=== PATIENT | male | born 1960 | race Two or more races ===

== ENCOUNTER 2018-02-17 07:20 | Emergency (ER) | payer SELFPAY ==
[2018-02-17 07:36] VITALS: BP 143/77; PULSE 88; TEMP 99; BMI 28.4
--- NOTE | 2018-02-17 07:53 | ED PDOC ---
HPI: General Adult Time Seen by Provider: 02/17/18 07:39 Chief Complaint (Nursing): Allergic Reaction Chief Complaint (Provider): Facial swelling History Per: Patient History/Exam Limitations: no limitations Onset/Duration Of Symptoms: Days (x 3) Current Symptoms Are (Timing): Still Present Additional Complaint(s): 57 year old male with a history of diabetes presents to the ED with right facial swelling associated with a right frontal toothache for the last 3 days. Denies fever and other medical complaints. PMD: none provided Past Medical History Reviewed: Historical Data, Nursing Documentation, Vital Signs Vital Signs: Last Vital Signs Temp 99 F 02/17/18 07:35 Pulse 88 02/17/18 07:35 Resp BP 143/77 02/17/18 07:35 Pulse Ox 97 02/17/18 07:35 - Medical History PMH: No Chronic Diseases - Surgical History Surgical History: No Surg Hx - Family History Family History: States: Unknown Family Hx - Home Medications Home Medications: Ambulatory Orders Medication Instructions Recorded Penicillin VK [Penicillin VK Tab] 500 mg PO Q6 #40 tab 02/17/18 traMADol [Ultram] 50 mg PO Q8 #10 tab 02/17/18 - Allergies Allergies/Adverse Reactions: Allergies Allergy/AdvReac Type Severity Reaction Status Date / Time No Known Allergies Allergy Verified 02/17/18 07:46 Review of Systems ROS Statement: Except As Marked, All Systems Reviewed And Found Negative Constitutional: Negative for: Fever ENT: Positive for: Mouth Pain ( right frontal toothache), Other (right facial swelling) Physical Exam - Reviewed Nursing Documentation Reviewed: Yes Vital Signs Reviewed: Yes - Physical Exam Appears: Positive for: Non-toxic, No Acute Distress Head Exam: Positive for: ATRAUMATIC, NORMAL INSPECTION, NORMOCEPHALIC Skin: Positive for: Normal Color, Warm, Dry Eye Exam: Positive for: EOMI, Normal appearance, PERRL ENT: Positive for: Other (right upper frontal incisor missing with swelling in gum and questionable purulent drainage ). Negative for: Sinus Pain/Drainage (maxillary sinus tenderness) Cardiovascular/Chest: Positive for: Regular Rate, Rhythm. Negative for: Murmur Respiratory: Positive for: Normal Breath Sounds. Negative for: Respiratory Distress Neurologic/Psych: Positive for: Alert, Oriented (x 3). Negative for: Motor/Sensory Deficits - ECG O2 Sat by Pulse Oximetry: 97 (RA) Pulse Ox Interpretation: Normal Disposition - Clinical Impression Clinical Impression: Pain, dental - Disposition Referrals: Gael Arriaga DDS [Staff Provider] - Disposition: Routine/Home Disposition Time: 08:15 Condition: FAIR Prescriptions: Penicillin VK [Penicillin VK Tab] 500 mg PO Q6 #40 tab traMADol [Ultram] 50 mg PO Q8 #10 tab Instructions: Dental Pain (DC)
[2018-02-17 09:19] VITALS: O2SAT 97
== END 2018-02-17 08:25 | disposition home or self-care (01) ==
LOC: H.ER 07:20
DX: K08.89 Other specified disorders of teeth and supporting structures (principal); E11.9 Type 2 diabetes mellitus without complications